=== PATIENT | female | born 2005 | race Caucasian/White ===

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

== ENCOUNTER 2023-09-18 10:29 | Outpatient (CLI) | payer OTHER, SELFPAY | END 2023-09-18 10:30 | disposition home or self-care (01) | PROVIDERS: Visit Provider Emergency Medicine | DX: Z00.00 Encounter for general adult medical examination without abnormal findings (principal); E61.1 Iron deficiency; R59.9 Enlarged lymph nodes, unspecified | CPT/HCPCS: 82728; 83516 ==

== ENCOUNTER 2024-09-24 13:02 | Outpatient (CLI) | payer OTHER, SELFPAY | END 2024-09-24 13:03 | disposition home or self-care (01) | PROVIDERS: PCP Emergency Medicine; Visit Provider Emergency Medicine | DX: Z00.00 Encounter for general adult medical examination without abnormal findings (principal); E61.1 Iron deficiency; D50.9 Iron deficiency anemia, unspecified; Z12.4 Encounter for screening for malignant neoplasm of cervix; Z11.3 Encounter for screening for infections with a predominantly sexual mode of transmission | CPT/HCPCS: 82728; 87491; 87591; 87624; 87625; 88141; 88142 ==

== ENCOUNTER 2025-02-01 18:22 | Outpatient (CLI) | payer OTHER, SELFPAY ==
[2025-02-01 21:09] LABS: Chlamydia DNA Amplified* NOT DETECTED (No Detected); GC DNA Amplified* NOT DETECTED (No Detected)
== END 2025-02-01 18:23 | disposition home or self-care (01) ==
LOC: NFLDREF 18:22
PROVIDERS: PCP Emergency Medicine; Visit Provider Physician Assistant
DX: R10.2 Pelvic and perineal pain (principal); N92.6 Irregular menstruation, unspecified
CPT/HCPCS: 87491; 87591

== ENCOUNTER 2025-02-15 17:16 | Outpatient (CLI) | payer OTHER, SELFPAY ==
--- NOTE | 2025-02-15 17:30 | CRLHL7_ITS ---
For Patients: As a result of the Century Cures Act, medical imaging exams and procedure reports are released immediately into your electronic medical record. You may view this report before your referring provider. If you have questions, please contact your health care provider. CLINICAL HISTORY: Pelvic pain TECHNIQUE: 2D chaparro scale ultrasound. In addition color Doppler and spectral Doppler analysis was performed of the pelvis using a transvaginal approach. Transabdominal approach was nondiagnostic due to bowel gas. FINDINGS: On transvaginal imaging, the myometrium has a normal uniform echotexture. The uterus measures 5.9 x 2.5 x 3.1 cm. The endometrial lining appears normal and measures 4.9 mm in thickness. The right ovary measures 1.8 x 2.9 x 2.5 cm in size and the left ovary measures 6.4 x 3.6 x 4.7 cm. The ovaries demonstrate normal arterial and venous blood flow on color Doppler and spectral Doppler analysis. There are no suspicious fluid collections within the cul-de-sac. Left ovarian cyst is present measuring 3.5 x 2.9 x 3.1 cm with diffuse low-level internal echoes. No internal vascularity. IMPRESSION: Possible endometrioma left ovary measuring 3.5 cm. No adnexal fluid or evidence of ovarian torsion. No uterine fibroid. Dictated by Dany Orosco MD @ 02/15/2025 9:38:03 PM (Electronically Signed)
== END 2025-02-15 17:17 | disposition home or self-care (01) ==
LOC: US 17:17
PROVIDERS: PCP Emergency Medicine; Visit Provider Physician Assistant
DX: R10.2 Pelvic and perineal pain (principal)
CPT/HCPCS: 76830; 93976

== ENCOUNTER 2025-03-09 11:28 | Outpatient (CLI) | payer OTHER, SELFPAY | END 2025-03-09 11:29 | disposition home or self-care (01) | PROVIDERS: PCP Emergency Medicine; Visit Provider Physician Assistant | DX: N91.2 Amenorrhea, unspecified (principal); E61.1 Iron deficiency | CPT/HCPCS: 84146; 84443 ==

== ENCOUNTER 2025-08-11 13:49 | Outpatient (CLI) | payer OTHER, SELFPAY | END 2025-08-11 13:50 | disposition home or self-care (01) | LOC: NFLDREF 08-16 14:56 | PROVIDERS: PCP Nurse Practitioner Family; Referring Provider Emergency Medicine; Visit Provider Nurse Practitioner Family | DX: N91.2 Amenorrhea, unspecified (principal) | CPT/HCPCS: 82728; 83001; 83002; 84146; 84443 ==

== ENCOUNTER 2025-10-07 12:56 | Outpatient (CLI) | payer OTHER, SELFPAY | END 2025-10-07 12:57 | disposition home or self-care (01) | LOC: FRMREF 12:57 | PROVIDERS: PCP Nurse Practitioner Family; Visit Provider Nurse Practitioner Family | DX: Z13.6 Encounter for screening for cardiovascular disorders (principal) | CPT/HCPCS: 80061 ==